=== PATIENT | male | born 1970 | race Caucasian/White ===

== ENCOUNTER 2020-08-25 00:37 | Emergency (ER) | payer OTHER ==
[~2020-08-25 00:37] MED LIST: ATARAX25 MG PO; IBUPROFEN800 MG PO; PERMETHRIN CREA60 GM TOP; ROBAXIN500 MG PO
[2020-08-25] MEDS ORDERED: DICLOFENAC SODI75 MG PO (01:39)
[2020-08-25] MEDS ORDERED: CYCLOBENZAPRINE10 MG PO (01:39)
== END 2020-08-25 01:53 | disposition home or self-care (01) ==
LOC: FER 00:37
DX: M54.41 Lumbago with sciatica, right side (principal); I25.10 Atherosclerotic heart disease of native coronary artery without angina pectoris; I10 Essential (primary) hypertension; F17.210 Nicotine dependence, cigarettes, uncomplicated; E78.5 Hyperlipidemia, unspecified; Z95.5 Presence of coronary angioplasty implant and graft
CPT/HCPCS: 99283; J1885

== ENCOUNTER → 2021-07-27 | Day surgery (SDC) | payer OTHER ==
[~2021-07-27] VITALS: Ht 188 cm; Wt 100.0 kg
[~2021-07-27] MED LIST changes: +ASPIRIN EC81 M1 PO; +CHILDREN'S MAPA80 M1 PO; +CYCLOBENZAPRINE10 MG PO; +DICLOFENAC SODI75 MG PO; +LIPITOR40 MG PO; +LOPRESSOR25 MG PO; +PAXIL20 MG PO; +PEPCID AC20 MG PO; +PLAVIX75 MG PO
== END | disposition home or self-care (01) ==
LOC: FAS 07-13 08:00
DX: Z12.11 Encounter for screening for malignant neoplasm of colon (principal); D12.0 Benign neoplasm of cecum; D12.3 Benign neoplasm of transverse colon; I25.10 Atherosclerotic heart disease of native coronary artery without angina pectoris; I25.2 Old myocardial infarction; I10 Essential (primary) hypertension; K21.9 Gastro-esophageal reflux disease without esophagitis; E78.00 Pure hypercholesterolemia, unspecified; F17.200 Nicotine dependence, unspecified, uncomplicated; Z95.5 Presence of coronary angioplasty implant and graft; Z79.02 Long term (current) use of antithrombotics/antiplatelets; Z79.82 Long term (current) use of aspirin
CPT/HCPCS: J2704; J7120

== ENCOUNTER 2021-11-01 11:13 | Emergency (ER) | payer OTHER ==
[2021-11-01] MEDS ORDERED: BACLOFEN 10MG T10 MG PO (15:02)
== END 2021-11-01 15:07 | disposition home or self-care (01) ==
LOC: FER 11:13
DX: M54.50 Low back pain, unspecified (principal); G89.29 Other chronic pain; I10 Essential (primary) hypertension; F17.210 Nicotine dependence, cigarettes, uncomplicated
CPT/HCPCS: 96372; J1100; J1885